=== PATIENT | female | born 1945 | race Caucasian/White ===

== ENCOUNTER 2022-04-23 10:52 | Emergency (ER) | payer MEDICARE ==
[2022-04-23 11:03] VITALS: BP 142/75
--- NOTE | 2022-04-23 11:04 | ED Physician Documentation ---
PD HPI FEMALE - Stated complaint Stated Complaint: FEMALE - Chief complaint Chief Complaint: UTI - History obtained from History obtained from: Patient - History of Present Illness Timing - onset: Today, Last night Timing - details: Abrupt onset, Still present Associated symptoms: Dysuria, Urinary frequency, Other (diarrhea/IBS flare a week ago that has since improved.). No: Fever, Back pain Similar symptoms before: Diagnosis (has had 3 UTIs in the past 6 months, last one being 3 weeks ago and Rx with Keflex.) Recently seen: Clinic (3 weeks ago for UTI and was on Keflex and improved but was slower better than usual.) Review of Systems Constitutional: denies: Fever, Chills GI: denies: Abdominal Pain, Nausea, Vomiting Musculoskeletal: denies: Back pain PD PAST MEDICAL HISTORY - Past Medical History Cardiovascular: None Respiratory: None Endocrine/Autoimmune: None : Chronic bladder infection - Present Medications Home Medications: Ambulatory Orders Medication Instructions Recorded Confirmed Ciprofloxacin HCl [Cipro] 500 mg PO BID #10 tablet 04/23/22 - Allergies Allergies/Adverse Reactions: Allergies Allergy/AdvReac Type Severity Reaction Status Date / Time Sulfa (Sulfonamide Allergy Unknown Verified 04/23/22 10:59 Antibiotics) PD ED PE NORMAL - Vitals Vital signs reviewed: Yes - General General: Alert and oriented X 3, Well developed/nourished - Derm Derm: Normal color, Warm and dry - Neuro Neuro: Alert and oriented X 3, No motor deficit, Normal speech Results - Vitals Vitals: Vital Signs - 24 hr 04/23/22 10:55 Temperature 36.1 C L Heart Rate 102 H Respiratory 16 Rate Blood Pressure 142/75 H O2 Saturation 95 - Labs Labs: Laboratory Tests 04/23/22 11:00 Urine Color DK. ORANGE Urine Clarity CLEAR Urine pH Ur Specific [place] Urine Protein Urine Glucose (UA) Urine Ketones Urine Occult Blood Urine Nitrite Urine Bilirubin COLOR INTERFERENCE Urine Urobilinogen Ur Leukocyte Esterase Urine RBC 0-5 Urine WBC 11-25 H Urine WBC Clumps PRESENT Ur Epithelial Cells RARE Transitional Ur Squamous Epith Cells FEW Squamous Urine Bacteria Few Ur Microscopic Review INDICATED Urine Culture Comments INDICATED PD MEDICAL DECISION MAKING - ED course Complexity details: considered differential (She is possibly allergic to sulfa. She has had recurring UTIs and so I am less inclined to treat with just Macrobid. She was on cephalexin just 3 weeks ago for a recent UTI. Therefore Cipro quinolone seems appropriate at this time.), d/w patient Departure - Departure Disposition: 01 Home, Self Care Clinical Impression: Cystitis, Dysuria Condition: Stable Record reviewed to determine appropriate education?: Yes Instructions: ED UTI Cystitis Female Prescriptions: Ciprofloxacin HCl [Cipro] 500 mg PO BID #10 tablet Comments: Stay well-hydrated. You continue with the Azo/phenazopyridine if needed for urinary discomfort. You could also take some anti-inflammatories such as ibuprofen or naproxen 2 tablets twice daily for urethral and bladder inflammation. Cipro antibiotic twice daily for 5 days. I sent the prescription to [facility] pharmacy. Your urine test should result urine culture in a couple of days. We will call if we need to modify the antibiotic based on that. Otherwise I would anticipate improvement over the next 2 to 3 days. Discharge Date/Time: 04/23/22 11:30
[2022-04-23] MEDS ORDERED: CIPROFLOXACIN 250 MG TABLET PO STA (11:17)
[2022-04-23 11:20] LABS: CLARITY,URINE CLEAR (CLEAR)
[2022-04-23 11:21] LABS: BILIRUBIN,URINE COLOR INTERFERENCE (NEGATIVE)
[2022-04-23 11:24] LABS: BACTERIA,URINE Few /HPF (None Seen); EPITHELIAL CELLS,UR RARE Transitional /HPF (<= Few); RBC,URINE 0-5 /HPF (0-5); SQUAMOUS EPITHELIAL CELL,UR FEW Squamous (<= Few); WBC CLUMPS,URINE PRESENT
--- NOTE | 2022-04-25 21:37 | ED Physician Documentation ---
ED Addendum - Addendum Addendum: 04/25/22 21:30 Patient seen by my colleague 2 days ago. Diagnosed with urinary tract infection. Subsequent urine culture has grown 50-100 CFU of E. coli. Patient was discharged on ciprofloxacin. Unfortunately this and antibiotic Is not sensitive to the strain of E. coli. A new prescription for Vantin 100 mg p.o. twice daily has been electronically sent to the [facility] pharmacy. Given the late hour the night nursing staff is instructed to call the patient in the morning to let her know about the antibiotic change and to stop taking the ciprofloxacin
== END 2022-04-23 11:30 | disposition home or self-care (01) ==
LOC: ED 10:52
DX: N30.90 Cystitis, unspecified without hematuria (principal)
CPT/HCPCS: 81001; 87086; 99282; 99283; A9270; 81003; 87077; 87181